=== PATIENT | female | born 1940 | race Caucasian/White ===

== ENCOUNTER 2022-07-27 16:47 | Emergency (ER) | payer OTHER ==
[2022-07-27 17:09] VITALS: BP 112/53; PULSE 69; RESP 20; TEMP 98; BMI 27.8
[2022-07-27] MEDS ORDERED: morphine CARPU-JECT 4 MG/1 ML DISP.SYRIN IVPUSH ONE (17:20)
[2022-07-27] MEDS ORDERED: ACETAMINOPHEN 500 MG TABLET (FP) PO ONE (17:52)
[2022-07-27] MEDS ORDERED: ACETAMINOPHEN 500 MG TABLET (FP) ONE (17:58)
[2022-07-27] MEDS ORDERED: ACETAMINOPHEN 1000 MG/100 ML BAG IVPB ONE (18:01)
[2022-07-27] MEDS ORDERED: ACETAMINOPHEN INJECTION 100 ML IVPB ONE (18:04)
== END 2022-07-27 20:53 | disposition home or self-care (01) ==
LOC: EDBD 16:47 → JER 16:47
PROC: 3E033NZ Introduction of Analgesics, Hypnotics, Sedatives into Peripheral Vein, Percutaneous Approach (ICD-10-PCS; principal; 2022-07-27)
DX: S42.201A Unspecified fracture of upper end of right humerus, initial encounter for closed fracture (principal); S82.65XA Nondisplaced fracture of lateral malleolus of left fibula, initial encounter for closed fracture; S92.355A Nondisplaced fracture of fifth metatarsal bone, left foot, initial encounter for closed fracture; W01.0XXA Fall on same level from slipping, tripping and stumbling without subsequent striking against object, initial encounter; Y93.01 Activity, walking, marching and hiking
CPT/HCPCS: 73030-TC-RT-FY; 73562-TC-LT-FY; 73562-TC-RT-FY; 73590-TC-LT-FY; 73610-TC-LT-FY; 73630-TC-LT; 96374; 99284-25